=== PATIENT | female | born 1990 | race Caucasian/White ===

== ENCOUNTER 2016-08-27 14:04 | Inpatient (IN) | payer BC, MEDICAID ==
[2016-08-27] MEDS ORDERED: Misoprostol 200 MCG Tab PO PRN (16:27)
[2016-08-27] MEDS ORDERED: Terbutaline 1 MG/ML SDV SUBCUT PRN (16:27)
[2016-08-27] MEDS ORDERED: Carboprost Tromethamine 250 MCG/1 ML Amp IM PRN (16:27)
[2016-08-27] MEDS ORDERED: Misoprostol 25 MCG (1/4 of 100 MCG) Tab PO PRN (16:27)
[2016-08-27] MEDS ORDERED: Sodium Chloride 0.9% 10 ML Syringe FLUSH PRN (16:27)
[2016-08-27] MEDS ORDERED: Misoprostol 25 MCG (1/4 of 100 MCG) Tab VAG PRN (16:27)
[2016-08-27] MEDS ORDERED: Nalbuphine 10 MG/1 ML Vial IVPUSH PRN (16:27)
[2016-08-27] MEDS ORDERED: Methylergonovine 0.2 MG/1 ML Amp IM PRN (16:27)
[2016-08-27] MEDS ORDERED: Lidocaine 1% 50 ML MDV INJECT PRN (16:27)
[2016-08-27] MEDS ORDERED: Water For Irrigation,Sterile 1,000 ML Container IRR PRN (16:27)
[2016-08-27] MEDS ORDERED: Sodium Chloride 0.9% 2.5 ML Syringe FLUSH PRN (16:27)
[2016-08-27] MEDS ORDERED: Misoprostol 25 MCG (1/4 of 100 MCG) Tab PO SCH (16:30)
[2016-08-27] MEDS ORDERED: Oxytocin/Lactated Ringers 30 UNIT/500 ML BAG IV SCH (16:30)
[2016-08-27] MEDS ORDERED: Misoprostol 25 MCG (1/4 of 100 MCG) Tab VAG SCH (16:30)
--- NOTE | 2016-08-27 17:00 | PCM.LDHP ---
L&D History of Present Illness - General Date of Service: 08/27/16 Admit Problem/Dx: Patient Status Order with Admit Dx/Problem 08/27/16 14:15 Patient Status [ADT] Routine 08/27/16 16:28 Patient Status [ADT] Routine Admission Diagnosis/Problem Admission Diagnosis/Problem Source of Information: Patient History Limitations: Reports: No limitations - History of Present Illness Improves with: Reports: None Worsens with: Reports: None Associated Symptoms: Reports: N - Related Data Allergies/Adverse Reactions: Allergies Allergy/AdvReac Type Severity Reaction Status Date / Time No Known Allergies Allergy Verified 08/27/16 15:49 Home Medications: Home Meds Gabapentin [Neurontin] 100 mg PO ACLUN 08/29/14 [History] Gabapentin [Neurontin] 300 mg PO BID 08/29/14 [History] Social & Family History - Tobacco Use Smoking Status *Q: Never Smoker - Alcohol Use Days Per Week of Alcohol Use: 0 - Recreational Drug Use Recreational Drug Use: Yes Drug Use in Last 12 Months: Yes Recreational Drug Type: Reports: Marijuana/Hashish Recreational Drug Use Frequency: Monthly H&P Review of Systems - Review of Systems: Review Of Systems: See Below General: Reports: no symptoms HEENT: Reports: no symptoms Pulmonary: Reports: No Symptoms Cardiovascular: Reports: no symptoms Gastrointestinal: Reports: No symptoms Genitourinary: Reports: no symptoms Musculoskeletal: Reports: no symptoms Skin: Reports: no symptoms Psychiatric: Reports: no symptoms Neurological: Reports: No Symptoms Hematologic/Lymphatic: Reports: no symptoms Immunologic: Reports: no symptoms L&D Exam - Exam Exam: See Below - Vital Signs Weight: 117.027 kg - OB Specific Fundal Height in cm: 39 Contraction Intensity: Mild movement: active heart tones: present Presentation: Vertex - Patient Data Lab Results last 24 hrs: Laboratory Results - last 24 hr 08/27/16 08/27/16 Range/Units 14:00 14:00 Urine Color YELLOW Urine Appearance SLT CLOUDY Urine pH 8.0 (5.0-8.0) Ur Specific [place] 1.015 (1.001-1.035) Urine Protein NEGATIVE (NEGATIVE) mg/dL Urine Glucose (UA) NEGATIVE (NEGATIVE) mg/dL Urine Ketones NEGATIVE (NEGATIVE) mg/dL Urine Occult Blood NEGATIVE (NEGATIVE) Urine Nitrite NEGATIVE (NEGATIVE) Urine Bilirubin NEGATIVE (NEGATIVE) Urine Urobilinogen 0.2 (<2.0) EU/dL Ur Leukocyte Esterase SMALL (NEGATIVE) Urine Opiates Screen NEGATIVE (NEGATIVE) Ur Oxycodone Screen NEGATIVE (NEGATIVE) Urine Methadone Screen NEGATIVE (NEGATIVE) Ur Barbiturates Screen NEGATIVE (NEGATIVE) Ur Phencyclidine Scrn NEGATIVE (NEGATIVE) Ur Amphetamine Screen NEGATIVE (NEGATIVE) U Methamphetamines Scrn NEGATIVE (NEGATIVE) U Benzodiazepines Scrn NEGATIVE (NEGATIVE) U Cocaine Metab Screen NEGATIVE (NEGATIVE) U Marijuana (THC) Screen NEGATIVE (NEGATIVE) Problem List Initiated/Reviewed/Updated: Yes Orders Last 24hrs: Active Orders 24 hr Category Date Time Status Patient Status [ADT] Routine ADT 08/27/16 16:28 Active Bedrest Bathroom Privileges [RC] ASDIRECTED Care 08/27/16 16:28 Active Communication Order [RC] ASDIRECTED Care 08/27/16 16:28 Active Communication Order [RC] ASDIRECTED Care 08/27/16 16:28 Active Communication Order [RC] ASDIRECTED Care 08/27/16 16:28 Active Heart Tones [RC] CONTINUOUS Care 08/27/16 16:28 Active Non Stress Test [RC] PER UNIT ROUTINE Care 08/27/16 14:15 Active Non Stress Test [RC] PER UNIT ROUTINE Care 08/27/16 16:28 Active May Shower [RC] ASDIRECTED Care 08/27/16 16:28 Active Notify Provider [RC] PRN Care 08/27/16 16:28 Active Notify Provider [RC] PRN Care 08/27/16 16:28 Active Notify Provider [RC] PRN Care 08/27/16 16:28 Active Notify Provider [RC] STAT Care 08/27/16 16:28 Active Oxygen Therapy [RC] ASDIRECTED Care 08/27/16 16:28 Active Up ad Wen [RC] ASDIRECTED Care 08/27/16 14:15 Active Up ad Wen [RC] ASDIRECTED Care 08/27/16 16:28 Active Vaginal Exam [RC] Click To Edit Care 08/27/16 14:15 Active Vaginal Exam [RC] PRN Care 08/27/16 16:28 Active Vaginal Exam [RC] PRN Care 08/27/16 16:28 Active Vital Signs [RC] PER UNIT ROUTINE Care 08/27/16 14:15 Active Vital Signs [RC] PER UNIT ROUTINE Care 08/27/16 16:28 Active Vital Signs [RC] PER UNIT ROUTINE Care 08/27/16 16:28 Active Clear Liquid Diet [DIET] Diet 08/27/16 Dinner Active CBC W/O DIFF,HEMOGRAM [HEME] Routine Lab 08/27/16 16:28 Ordered TYPE AND SCREEN [BBK] Routine Lab 08/27/16 16:28 Ordered Butorphanol [Stadol] Med 08/27/16 16:27 Active 1 mg IVPUSH Q1H PRN Carboprost Tromethamine [Hemabate DS] Med 08/27/16 16:27 Active 250 mcg IM ASDIRECTED PRN Lactated Ringers [Ringers, Lactated] 1,000 ml Med 08/27/16 16:30 Active IV ASDIRECTED Lidocaine 1% [Xylocaine 1%] Med 08/27/16 16:27 Active 50 ml INJECT .ONCE PRN Methylergonovine [Methergine] Med 08/27/16 16:27 Active 0.2 mg IM ASDIRECTED PRN Misoprostol [Cytotec] Med 08/27/16 16:27 Active 200 mcg PO .ONCE PRN Misoprostol [Cytotec] Med 08/27/16 16:30 Active 25 mcg PO .ONCE Misoprostol [Cytotec] Med 08/27/16 16:27 Active 25 mcg PO Q4H PRN Misoprostol [Cytotec] Med 08/27/16 16:30 Active 25 mcg VAG .ONCE Misoprostol [Cytotec] Med 08/27/16 16:27 Active 25 mcg VAG Q4H PRN Nalbuphine [Nubain] Med 08/27/16 16:27 Active 10 mg IVPUSH Q1H PRN Oxytocin/Lactated Ringers [Pitocin in LR 30 Units/500 Med 08/27/16 16:30 Active ML] 30 unit in 500 ml IV TITRATE Sodium Chloride 0.9% [Saline Flush] Med 08/27/16 16:27 Active 10 ml FLUSH ASDIRECTED PRN Sodium Chloride 0.9% [Saline Flush] Med 08/27/16 16:27 Active 2.5 ml FLUSH ASDIRECTED PRN Terbutaline [Brethine] Med 08/27/16 16:27 Active 0.25 mg SUBCUT ASDIRECTED PRN Water For Irrigation,Sterile [Sterile Water for Med 08/27/16 16:27 Active Irrigation] 1,000 ml IRR ASDIRECTED PRN Scalp Electrode [WOMSER] Per Unit Routine Oth 08/27/16 16:28 Ordered Medication Administration Instruction [OM.PC] Q3H Oth 08/27/16 16:30 Ordered Peripheral IV Insertion Adult [OM.PC] Routine Oth 08/27/16 16:28 Ordered Resuscitation Status Routine Resus Stat 08/27/16 14:14 Ordered Medication Orders Butorphanol Tartrate (Stadol) 1 mg IVPUSH Q1H PRN PRN Reason: Pain Carboprost Tromethamine (Hemabate Ds) 250 mcg IM ASDIRECTED PRN PRN Reason: Post Hemorrhage Lactated Ringer's (Ringers, Lactated) 1,000 mls @ 150 mls/hr IV ASDIRECTED MARIYA Oxytocin/Lactated Ringer's (Pitocin In Lr 30 Units/500 Ml) 30 unit in 500 mls @ 2 mls/hr IV TITRATE MARIYA; 2 MUNITS/MIN PRN Reason: Protocol Stop: 08/28/16 16:29 Lidocaine HCl (Xylocaine 1%) 50 ml INJECT .ONCE PRN PRN Reason: Laceration repair Methylergonovine Maleate (Methergine) 0.2 mg IM ASDIRECTED PRN PRN Reason: Post Hemorrhage Misoprostol (Cytotec) 25 mcg VAG Q4H PRN PRN Reason: Cervical Ripening Stop: 08/28/16 20:28 Misoprostol (Cytotec) 200 mcg PO .ONCE PRN PRN Reason: Post Hemorrhage Misoprostol (Cytotec) 25 mcg PO Q4H PRN PRN Reason: Cervical Ripening Stop: 08/28/16 20:28 Misoprostol (Cytotec) 25 mcg VAG .ONCE MARIYA Misoprostol (Cytotec) 25 mcg PO .ONCE MARIYA Nalbuphine HCl (Nubain) 10 mg IVPUSH Q1H PRN PRN Reason: Pain (severe 7-10) Stop: 08/27/16 18:28 Sodium Chloride (Saline Flush) 10 ml FLUSH ASDIRECTED PRN PRN Reason: Keep Vein Open Sodium Chloride (Saline Flush) 2.5 ml FLUSH ASDIRECTED PRN PRN Reason: Keep Vein Open Sterile Water (Sterile Water For Irrigation) 1,000 ml IRR ASDIRECTED PRN PRN Reason: delivery Terbutaline Sulfate (Brethine) 0.25 mg SUBCUT ASDIRECTED PRN PRN Reason: Tacysystole Assessment/Plan Comment:: This patient is presented to labor and delivery with mild contraction have care done by fire protection fabricator and at [facility] she is currently postdate with the end EDC of August 18, 2016 hours documented by an early ultrasound and reviewing her record from her current health care provider. Hair health care provider is out of town until September 02 there is no other pulp maker or and fire protection fabricator in the area she is para 3o23 and her cervical exam is a 2 cm 50% vertex- 3. Because the patient is post date and there is no availability of provider in her area I counseled the patient and her and they both consented for induction admitting her for side effects and Pitocin induction risk and complication of the induction is discussed with the patient in detail
[2016-08-27] MEDS: Lactated Ringers 1,000 ML IV SCH (17:10)
[2016-08-28] MEDS: Butorphanol 1 MG/ML SDV IVPUSH PRN ×2 (01:30→04:04)
[2016-08-28] MEDS: Lactated Ringers 1,000 ML IV SCH ×3 (02:47→04:29)
[2016-08-28] MEDS ORDERED: Ropivacaine 0.2% 2 MG/ML 20 ML SDV ONE (02:57)
[2016-08-28] MEDS ORDERED: Ropivacaine HCl/PF 100 ML ONE (02:58)
[2016-08-28] MEDS ORDERED: fentaNYL 100 MCG/2 ML SDV ONE (02:59)
--- NOTE | 2016-08-28 04:04 | PCM.PREANE ---
Preanesthetic Assessment - Anesthesia/Transfusion/Family Hx Anesthesia History: Prior Anesthesia Without Reaction Family History of Anesthesia Reaction: No Transfusion History: No Prior Transfusion(s) - Review of Systems General: No Symptoms Pulmonary: No Symptoms Cardiovascular: No Symptoms Gastrointestinal: No symptoms Neurological: No Symptoms Other: Reports: None - Physical Assessment Height: 1.7 m Weight: 117.027 kg ASA Class: 2 Mental Status: Alert & Oriented x3 Airway Class: Mallampati = 2 Dentition: Reports: Normal Dentition ROM/Head Extension: Full - Lab Values: Laboratory Last Values WBC 15.92 K/uL (4.0-11.0) H 08/27/16 16:58 RBC 3.88 M/uL (4.30-5.90) L 08/27/16 16:58 Hgb 12.0 g/dL (12.0-16.0) 08/27/16 16:58 Hct 35.5 % (36.0-46.0) L 08/27/16 16:58 MCV 91.5 fL (80.0-98.0) 08/27/16 16:58 MCH 30.9 pg (27.0-32.0) 08/27/16 16:58 MCHC 33.8 g/dL (31.0-37.0) 08/27/16 16:58 RDW Std Deviation 50.9 fl (28.0-62.0) 08/27/16 16:58 RDW Coeff of Laxmi 16 % (11.0-15.0) H 08/27/16 16:58 Plt Count 286 K/uL (150-400) 08/27/16 16:58 MPV 11.30 fL (7.40-12.00) 08/27/16 16:58 Nucleated RBC % 0.0 /100WBC 08/27/16 16:58 Nucleated RBCs # 0 K/uL 08/27/16 16:58 Urine Color YELLOW 08/27/16 14:00 Urine Appearance SLT CLOUDY 08/27/16 14:00 Urine pH 8.0 (5.0-8.0) 08/27/16 14:00 Ur Specific [place] 1.015 (1.001-1.035) 08/27/16 14:00 Urine Protein NEGATIVE mg/dL (NEGATIVE) 08/27/16 14:00 Urine Glucose (UA) NEGATIVE mg/dL (NEGATIVE) 08/27/16 14:00 Urine Ketones NEGATIVE mg/dL (NEGATIVE) 08/27/16 14:00 Urine Occult Blood NEGATIVE (NEGATIVE) 08/27/16 14:00 Urine Nitrite NEGATIVE (NEGATIVE) 08/27/16 14:00 Urine Bilirubin NEGATIVE (NEGATIVE) 08/27/16 14:00 Urine Urobilinogen 0.2 EU/dL (<2.0) 08/27/16 14:00 Ur Leukocyte Esterase SMALL (NEGATIVE) 08/27/16 14:00 Urine Opiates Screen NEGATIVE (NEGATIVE) 08/27/16 14:00 Ur Oxycodone Screen NEGATIVE (NEGATIVE) 08/27/16 14:00 Urine Methadone Screen NEGATIVE (NEGATIVE) 08/27/16 14:00 Ur Barbiturates Screen NEGATIVE (NEGATIVE) 08/27/16 14:00 Ur Phencyclidine Scrn NEGATIVE (NEGATIVE) 08/27/16 14:00 Ur Amphetamine Screen NEGATIVE (NEGATIVE) 08/27/16 14:00 U Methamphetamines Scrn NEGATIVE (NEGATIVE) 08/27/16 14:00 U Benzodiazepines Scrn NEGATIVE (NEGATIVE) 08/27/16 14:00 U Cocaine Metab Screen NEGATIVE (NEGATIVE) 08/27/16 14:00 U Marijuana (THC) Screen NEGATIVE (NEGATIVE) 08/27/16 14:00 Blood Type O POSITIVE 08/27/16 16:58 Antibody Screen NEGATIVE 08/27/16 16:58 - Allergies Allergies/Adverse Reactions: Allergies Allergy/AdvReac Type Severity Reaction Status Date / Time No Known Allergies Allergy Verified 08/27/16 15:49 - Acknowledgements Anesthesia Type Planned: Epidural Pt an Appropriate Candidate for the Planned Anesthesia: Yes Alternatives and Risks of Anesthesia Discussed w Pt/Guardian: Yes Pt/Guardian Understands and Agrees with Anesthesia Plan: Yes Additional Comments: Pt agress to risks and benefits (along with significant other in room) PreAnesthesia Questionnaire - Past Health History Medical/Surgical History: Denies Medical/Surgical History (Patient denies taking any medication or any medical problems) Gastrointestinal History: Reports: Irritable bowel syndrome UG DESIGNER History: Reports: , Spontaneous , Therapeutic Musculoskeletal History: Reports: Fibromyalgia, Other (see below) Other Musculoskeletal History: carpal tunnel syndrome Psychiatric History: Reports: Depression Endocrine/Metabolic History: Reports: None (Denies any personal or family hx of bleeding or clotting problems), Obesity/BMI 30+ - Infectious Disease History Infectious Disease History: Reports: Herpes - Past Surgical History HEENT Surgical History: Reports: Tonsillectomy Female Surgical History: Reports: Cystectomy Endocrine Surgical History: Reports: None Musculoskeletal Surgical History: Reports: None - SUBSTANCE USE Smoking Status *Q: Never Smoker Days Per Week of Alcohol Use: 0 Recreational Drug Use History: Yes Recreational Drug Type: Reports: Marijuana/Hashish - HOME MEDS Home Medications: Home Meds Gabapentin [Neurontin] 100 mg PO ACLUN 08/29/14 [History] Gabapentin [Neurontin] 300 mg PO BID 08/29/14 [History] - CURRENT (IN HOUSE) MEDS Current Meds: Current Medications Butorphanol Tartrate (Stadol) 1 mg IVPUSH Q1H PRN PRN Reason: Pain Last Admin: 08/28/16 01:30 Dose: 1 mg Carboprost Tromethamine (Hemabate Ds) 250 mcg IM ASDIRECTED PRN PRN Reason: Post Hemorrhage Lactated Ringer's (Ringers, Lactated) 1,000 mls @ 150 mls/hr IV ASDIRECTED MARIYA Last Admin: 08/28/16 03:20 Dose: 999 mls/hr Oxytocin/Lactated Ringer's (Pitocin In Lr 30 Units/500 Ml) 30 unit in 500 mls @ 2 mls/hr IV TITRATE MARIYA; 2 MUNITS/MIN PRN Reason: Protocol Stop: 08/28/16 16:29 Lidocaine HCl (Xylocaine 1%) 50 ml INJECT .ONCE PRN PRN Reason: Laceration repair Last Admin: 08/28/16 03:34 Dose: 50 ml Methylergonovine Maleate (Methergine) 0.2 mg IM ASDIRECTED PRN PRN Reason: Post Hemorrhage Misoprostol (Cytotec) 25 mcg VAG Q4H PRN PRN Reason: Cervical Ripening Stop: 08/28/16 20:28 Last Admin: 08/27/16 21:30 Dose: 25 mcg Misoprostol (Cytotec) 200 mcg PO .ONCE PRN PRN Reason: Post Hemorrhage Misoprostol (Cytotec) 25 mcg PO Q4H PRN PRN Reason: Cervical Ripening Stop: 08/28/16 20:28 Last Admin: 08/27/16 21:30 Dose: 25 mcg Misoprostol (Cytotec) 25 mcg VAG .ONCE MARIYA Last Admin: 08/27/16 17:25 Dose: 25 mcg Misoprostol (Cytotec) 25 mcg PO .ONCE MARIYA Last Admin: 08/27/16 17:25 Dose: 25 mcg Sodium Chloride (Saline Flush) 10 ml FLUSH ASDIRECTED PRN PRN Reason: Keep Vein Open Sodium Chloride (Saline Flush) 2.5 ml FLUSH ASDIRECTED PRN PRN Reason: Keep Vein Open Sterile Water (Sterile Water For Irrigation) 1,000 ml IRR ASDIRECTED PRN PRN Reason: delivery Terbutaline Sulfate (Brethine) 0.25 mg SUBCUT ASDIRECTED PRN PRN Reason: Tacysystole Discontinued Medications Fentanyl (Sublimaze) Confirm Administered Dose 200 mcg .ROUTE .STK-MED ONE Stop: 08/28/16 03:00 Ropivacaine (Naropin 0.2%) Confirm Administered Dose 100 mls @ as directed .ROUTE .STK-MED ONE Stop: 08/28/16 02:59 Nalbuphine HCl (Nubain) 10 mg IVPUSH Q1H PRN PRN Reason: Pain (severe 7-10) Stop: 08/27/16 18:28 Ropivacaine (Naropin 0.2%) Confirm Administered Dose 20 ml .ROUTE .STK-MED ONE Stop: 08/28/16 02:58
--- NOTE | 2016-08-28 04:55 | PCM.SN ---
- Free Text/Narrative Note: Called to assist in epidural placement. RECORDS SECTION SUPERVISOR had failed attempts at placement in this laboring patient. On my arrival, patient was in LLD position. I identified myself and proceeded to set up [place] kit. After sterile prep, local anesthetic 5ml lidocaine (1%) was given shallow and deep at L45 level. Patient was trying ot be cooperative in attempting a curl position but responded to just palpation (anticipation of pain). Difficult to set 17g Tuohy needle into the ligament midline but accomplished on second attempt. 2ml saline ( preservative free) injected and catheter then placed. Needle withdrawn and injection of 4ml done via the catheter containing 100mcg fentanyl in saline followed. Sterile transparent dressing applied and supine position assumed. Incremental injection of 20ml 0.2% ropivacaine followed at the bedside over 10 minutes. Continuous infusion then connected by DON, who then assumed further care. Patient's vitals remained stable and analgesia was accomplished before I left the bedside. Time involved [id number] 28 August 2016.
--- NOTE | 2016-08-28 07:07 | PCM.SN ---
- Free Text/Narrative Note: Called by OB stating that the patient is feeling everything in her legs and is very uncomfortable. Asked them to page Dr. Vann since the epidural was difficult to place and I would be in. Upon arrival 15 minutes later, patient and nurse in the room state that patient got better after pushing bolus button. Patient states that she can still feel her legs and feels pressure in her vagina and is scared that "the baby is going to come out and she is going to tear because of his position." Patient is not feeling contractions. Reassured patient and she voices understanding that she is going to feel pressure and that her legs will have feeling. She states she has never had any sensation in her legs with her other epidurals. I visited with Dr. Vann and increased the bolus to 7 ml q 15 minutes with a maximum of 21 ml per hour. Patient states she is very anxious. Patient is now 7 cm. Reassured again.
--- NOTE | 2016-08-28 08:36 | PCM.PNLD ---
Labor Progress Note - VS & Meds Active Medications: Current Medications Butorphanol Tartrate (Stadol) 1 mg IVPUSH Q1H PRN PRN Reason: Pain Last Admin: 08/28/16 04:04 Dose: 1 mg Carboprost Tromethamine (Hemabate Ds) 250 mcg IM ASDIRECTED PRN PRN Reason: Post Hemorrhage Lactated Ringer's (Ringers, Lactated) 1,000 mls @ 150 mls/hr IV ASDIRECTED MARIYA Last Admin: 08/28/16 04:29 Dose: 150 mls/hr Oxytocin/Lactated Ringer's (Pitocin In Lr 30 Units/500 Ml) 30 unit in 500 mls @ 2 mls/hr IV TITRATE MARIYA; 2 MUNITS/MIN PRN Reason: Protocol Stop: 08/28/16 16:29 Last Titration: 08/28/16 08:30 Dose: 8 munits/min, 8 mls/hr Lidocaine HCl (Xylocaine 1%) 50 ml INJECT .ONCE PRN PRN Reason: Laceration repair Last Admin: 08/28/16 03:34 Dose: 50 ml Methylergonovine Maleate (Methergine) 0.2 mg IM ASDIRECTED PRN PRN Reason: Post Hemorrhage Misoprostol (Cytotec) 25 mcg VAG Q4H PRN PRN Reason: Cervical Ripening Stop: 08/28/16 20:28 Last Admin: 08/27/16 21:30 Dose: 25 mcg Misoprostol (Cytotec) 200 mcg PO .ONCE PRN PRN Reason: Post Hemorrhage Misoprostol (Cytotec) 25 mcg PO Q4H PRN PRN Reason: Cervical Ripening Stop: 08/28/16 20:28 Last Admin: 08/27/16 21:30 Dose: 25 mcg Misoprostol (Cytotec) 25 mcg VAG .ONCE MARIYA Last Admin: 08/27/16 17:25 Dose: 25 mcg Misoprostol (Cytotec) 25 mcg PO .ONCE MARIYA Last Admin: 08/27/16 17:25 Dose: 25 mcg Sodium Chloride (Saline Flush) 10 ml FLUSH ASDIRECTED PRN PRN Reason: Keep Vein Open Sodium Chloride (Saline Flush) 2.5 ml FLUSH ASDIRECTED PRN PRN Reason: Keep Vein Open Sterile Water (Sterile Water For Irrigation) 1,000 ml IRR ASDIRECTED PRN PRN Reason: delivery Terbutaline Sulfate (Brethine) 0.25 mg SUBCUT ASDIRECTED PRN PRN Reason: Tacysystole Discontinued Medications Fentanyl (Sublimaze) Confirm Administered Dose 200 mcg .ROUTE .STK-MED ONE Stop: 08/28/16 03:00 Last Admin: 08/28/16 07:39 Dose: Not Given Ropivacaine (Naropin 0.2%) Confirm Administered Dose 100 mls @ as directed .ROUTE .STK-MED ONE Stop: 08/28/16 02:59 Last Admin: 08/28/16 07:39 Dose: Not Given Nalbuphine HCl (Nubain) 10 mg IVPUSH Q1H PRN PRN Reason: Pain (severe 7-10) Stop: 08/27/16 18:28 Ropivacaine (Naropin 0.2%) Confirm Administered Dose 20 ml .ROUTE .STK-MED ONE Stop: 08/28/16 02:58 Last Admin: 08/28/16 07:39 Dose: Not Given - Uterine Contractions Uterine Monitoring Mode: External [place] Contraction Intensity: Moderate - Monitoring Monitor Mode: External Ultrasound Heart Rate (FHR) Per Doppler: 136 Heart Rate (FHR) Variability: Moderate (6-25 bmp) Accelerations: Present, 15x15 Decelerations: None - Vaginal Exam Dilation (cm): 8 Effacement (Percent): 90 Station: 0 Vaginal Exam Comment: Artificial rupture of the membrane done today with clear fluid noted. Anticipating normal spontaneous vaginal delivery soon
[2016-08-28] MEDS ORDERED: Benzocaine/Menthol 20%-0.5% Spray 78 GM Cannister TOP PRN (09:37)
[2016-08-28] MEDS ORDERED: Docusate Sodium 100 MG Cap PO PRN (09:37)
[2016-08-28] MEDS ORDERED: Acetaminophen 500 MG Tab PO PRN (09:37)
[2016-08-28] MEDS ORDERED: Ibuprofen 400 MG Tab PO PRN (09:37)
[2016-08-28] MEDS ORDERED: Witch Hazel Medicated Pads 40/Jar TOP PRN (09:37)
[2016-08-28] MEDS ORDERED: Bisacodyl 10 MG Supp RECTAL PRN (09:37)
[2016-08-28] MEDS ORDERED: Lanolin 100% Cream 7 GM Tube TOP PRN (09:37)
[2016-08-28] MEDS: Ibuprofen 800 MG Tab PO PRN ×2 (10:27→18:53)
[2016-08-28] MEDS: Acetaminophen 500 MG Tab PO PRN ×2 (15:51→20:30)
--- NOTE | 2016-08-28 16:58 | OR ---
SURGEON: Leon Small MD DATE OF PROCEDURE: DELIVERY NOTE: Ms. Guidry is a 26-year-old patient. She is para 3-2-3. She is followed in the clinic at [place]. However, her healthcare provider and visual aid expert are out of town. At this time, she presented to our Labor and Delivery in early labor. I reviewed her record. Her GBS status is negative. The patient according to an early ultrasound, she is 41+ weeks and so we admitted the patient for labor augmentation and we used Cytotec and Pitocin and she responded to it very well. She had epidural anesthesia for labor analgesia. The patient have an artificial rupture of the membrane by me had clear fluid at 7 to 8 cm and then she was able to accomplish a normal spontaneous vaginal delivery of male fetus. score reported to be 8 and 9. The weight is not available. The heart rate was category 1 through the entire process of labor. Estimated blood loss is 300 to 350 mL. There was no laceration. There is no need for the episiotomy and there was no complication in this . OSEI / ALPESH /[id number]
--- NOTE | 2016-08-28 20:25 | PCM48HPAN ---
Post Anesthesia Note - EVALUATION WITHIN 48HRS OF ANESTHETIC Vital Signs in Normal Range: Yes Patient Participated in Evaluation: Yes Respiratory Function Stable: Yes Airway Patent: Yes Cardiovascular Function Stable: Yes Hydration Status Stable: Yes Pain Control Satisfactory: Yes Nausea and Vomiting Control Satisfactory: Yes Mental Status Recovered: Yes - COMMENTS/OBSERVATIONS Free Text/Narrative:: Pt reports tenderness to back from insertion of epidural catheter. No other problems reported or observed.
[2016-08-28] MEDS: oxyCODONE 5 MG Tab PO PRN (23:04)
[2016-08-29] MEDS: oxyCODONE 5 MG Tab PO PRN ×3 (04:13→12:47)
[2016-08-29] MEDS: Ibuprofen 800 MG Tab PO PRN ×2 (04:14→12:48)
[2016-08-29] MEDS: Acetaminophen 500 MG Tab PO PRN (08:14)
--- NOTE | 2016-08-29 08:36 | PCM.PNPP ---
- General Info Date of Service: 08/29/16 Functional Status: Reports: pain controlled - Review of Systems General: Reports: No Symptoms HEENT: Reports: no symptoms Pulmonary: Reports: no symptoms Cardiovascular: Reports: No Symptoms Gastrointestinal: Reports: No symptoms Genitourinary: Reports: no symptoms Musculoskeletal: Reports: no symptoms Skin: Reports: no symptoms Neurological: Reports: No Symptoms Psychiatric: Reports: no symptoms - General Info Date of Service: 08/29/16 - Patient Data Vital Signs - most recent: Last Vital Signs Temp 36.9 C 08/29/16 04:18 Pulse 62 08/29/16 04:18 Resp 16 08/29/16 04:18 BP 117/55 L 08/29/16 04:18 Pulse Ox 97 08/29/16 04:18 Weight - most recent: 117.027 kg Lab Results - last 24 hrs: Laboratory Results - last 24 hr 08/29/16 Range/Units 04:45 Hgb 9.3 L (12.0-16.0) g/dL Hct 27.9 L (36.0-46.0) % Med Orders - Current: Current Medications Acetaminophen (Tylenol Extra Strength) 500 mg PO Q4H PRN PRN Reason: Pain Acetaminophen (Tylenol Extra Strength) 1,000 mg PO Q4H PRN PRN Reason: Pain Last Admin: 08/29/16 08:14 Dose: 1,000 mg Benzocaine/Menthol (Dermoplast Pain Relief 20%-0.5% [place]) 78 gm TOP ASDIRECTED PRN PRN Reason: Perineal Comfort Measure Last Admin: 08/28/16 10:26 Dose: 1 can Bisacodyl (Dulcolax) 10 mg RECTAL .ONCE PRN PRN Reason: Constipation Butorphanol Tartrate (Stadol) 1 mg IVPUSH Q1H PRN PRN Reason: Pain Last Admin: 08/28/16 04:04 Dose: 1 mg Carboprost Tromethamine (Hemabate Ds) 250 mcg IM ASDIRECTED PRN PRN Reason: Post Hemorrhage Docusate Sodium (Colace) 100 mg PO BID PRN PRN Reason: Constipation Emollient Ointment (Lansinoh Hpa) 0 gm TOP ASDIRECTED PRN PRN Reason: Sore Nipples Last Admin: 08/28/16 10:27 Dose: 1 tube Lactated Ringer's (Ringers, Lactated) 1,000 mls @ 150 mls/hr IV ASDIRECTED MARIYA Last Admin: 08/28/16 04:29 Dose: 150 mls/hr Ibuprofen (Motrin) 400 mg PO Q4H PRN PRN Reason: Pain Ibuprofen (Motrin) 800 mg PO Q6H PRN PRN Reason: Pain Last Admin: 08/29/16 04:14 Dose: 800 mg Lidocaine HCl (Xylocaine 1%) 50 ml INJECT .ONCE PRN PRN Reason: Laceration repair Last Admin: 08/28/16 03:34 Dose: 50 ml Methylergonovine Maleate (Methergine) 0.2 mg IM ASDIRECTED PRN PRN Reason: Post Hemorrhage Misoprostol (Cytotec) 200 mcg PO .ONCE PRN PRN Reason: Post Hemorrhage Misoprostol (Cytotec) 25 mcg VAG .ONCE MARIYA Last Admin: 08/27/16 17:25 Dose: 25 mcg Misoprostol (Cytotec) 25 mcg PO .ONCE MARIYA Last Admin: 08/27/16 17:25 Dose: 25 mcg Oxycodone HCl (Oxycodone) 5 mg PO Q2H PRN PRN Reason: Pain Last Admin: 08/29/16 08:13 Dose: 5 mg Sodium Chloride (Saline Flush) 10 ml FLUSH ASDIRECTED PRN PRN Reason: Keep Vein Open Sodium Chloride (Saline Flush) 2.5 ml FLUSH ASDIRECTED PRN PRN Reason: Keep Vein Open Sterile Water (Sterile Water For Irrigation) 1,000 ml IRR ASDIRECTED PRN PRN Reason: delivery Terbutaline Sulfate (Brethine) 0.25 mg SUBCUT ASDIRECTED PRN PRN Reason: Tacysystole Witch Ara (Tucks) 1 pad TOP ASDIRECTED PRN PRN Reason: comfort care Last Admin: 08/28/16 10:27 Dose: 1 tub Discontinued Medications Fentanyl (Sublimaze) Confirm Administered Dose 200 mcg .ROUTE .STK-MED ONE Stop: 08/28/16 03:00 Last Admin: 08/28/16 07:39 Dose: Not Given Oxytocin/Lactated Ringer's (Pitocin In Lr 30 Units/500 Ml) 30 unit in 500 mls @ 2 mls/hr IV TITRATE MARIYA; 2 MUNITS/MIN PRN Reason: Protocol Stop: 08/28/16 16:29 Last Titration: 08/28/16 09:28 Dose: 999 munits/min, 999 mls/hr Ropivacaine (Naropin 0.2%) Confirm Administered Dose 100 mls @ as directed .ROUTE .STK-MED ONE Stop: 08/28/16 02:59 Last Admin: 08/28/16 07:39 Dose: Not Given Misoprostol (Cytotec) 25 mcg VAG Q4H PRN PRN Reason: Cervical Ripening Stop: 08/28/16 20:28 Last Admin: 08/27/16 21:30 Dose: 25 mcg Misoprostol (Cytotec) 25 mcg PO Q4H PRN PRN Reason: Cervical Ripening Stop: 08/28/16 20:28 Last Admin: 08/27/16 21:30 Dose: 25 mcg Nalbuphine HCl (Nubain) 10 mg IVPUSH Q1H PRN PRN Reason: Pain (severe 7-10) Stop: 08/27/16 18:28 Ropivacaine (Naropin 0.2%) Confirm Administered Dose 20 ml .ROUTE .STK-MED ONE Stop: 08/28/16 02:58 Last Admin: 08/28/16 07:39 Dose: Not Given - Interaction Infant Disposition, : in Room with Family Infant Interaction: Holding Infant Feeding: Attempted ; Nursed Fair/Poor Support Person: Significant Other - Recovery Exam Fundal Tone: Firm Fundal Level: At Umbilicus Fundal Placement: Midline Lochia Amount: Small Lochia Color: Rubra/Red Perineum Description: Intact, Minimal Bruising/Swelling Episiotomy/Laceration: None Bladder Status: Voiding Urinary Elimination: Voided - Exam General: alert, oriented HEENT: Pupils equal Neck: supple Lungs: Clear to auscultation, Normal respiratory effort Cardiovascular: Regular Rate, Regular Rhythm Abdomen: bowel sounds present, soft, no tenderness, no distension Extremities: no edema Skin: warm, dry, intact Wound/Incisions: healing well Neurological: no new focal deficit Psy/Mental Status: alert, normal affect, normal mood - Problem List Review Problem List Initiated/Reviewed/Updated: Yes - My Orders Last 24 Hours: My Active Orders 08/28/16 09:37 Acetaminophen [Tylenol Extra Strength] 1,000 mg PO Q4H PRN Acetaminophen [Tylenol Extra Strength] 500 mg PO Q4H PRN Benzocaine/Menthol [Dermoplast Pain Relief 20%-0.5% [place]] 78 gm TOP ASDIRECTED PRN Bisacodyl [Dulcolax] 10 mg RECTAL .ONCE PRN Docusate Sodium [Colace] 100 mg PO BID PRN Ibuprofen [Motrin] 400 mg PO Q4H PRN Ibuprofen [Motrin] 800 mg PO Q6H PRN Lanolin [Lansinoh HPA] See Dose Instructions TOP ASDIRECTED PRN Leilani Bullock [Tucks] 1 pad TOP ASDIRECTED PRN oxyCODONE 5 mg PO Q2H PRN 08/28/16 09:41 Patient Status [ADT] Routine May Shower [RC] ASDIRECTED Assess Lochia [WOMSER] Per Unit Routine Assess Uterine Involution [WOMSER] Per Unit Routine Peripheral IV Discontinue [OM.PC] Routine 08/28/16 Lunch Regular Diet [DIET] - Plan Plan:: This patient is presented to labor and delivery with mild contraction have care done by licensed midwife and at [facility] she is currently postdate with the end EDC of August 18, 2016 hours documented by an early ultrasound and reviewing her record from her current health care provider. Hair health care provider is out of town until September 02 there is no other authorization coordinator or and licensed midwife in the area she is para [id number] and her cervical exam is a 2 cm 50% vertex- 3. Because the patient is post date and there is no availability of provider in her area I counseled the patient and her and they both consented for induction admitting her for side effects and Pitocin induction risk and complication of the induction is discussed with the patient in detail
--- NOTE | 2016-08-29 08:37 | PCM.DCSUM1 ---
Discharge Summary - Discharge Data Discharge Date: 08/29/16 Discharge Disposition: Home, Self-Care 01 Condition: Good - Patient Instructions Diet: Usual Diet as Tolerated Activity: As Tolerated Driving: Do Not Drive Showering/Bathing: May Shower Notify Provider of: Fever, Increased Pain, Nausea and/or Vomiting - Discharge Plan Home Medications: Home Meds Gabapentin [Neurontin] 100 mg PO ACLUN 08/29/14 [History] Gabapentin [Neurontin] 300 mg PO BID 08/29/14 [History] Referrals: [facility] [Outside] Leon Small MD [Physician] - 10/08/16 10:45 am - General Info Date of Service: 08/29/16 Functional Status: Reports: pain controlled - Review of Systems General: Reports: No Symptoms HEENT: Reports: no symptoms Pulmonary: Reports: no symptoms Cardiovascular: Reports: No Symptoms Gastrointestinal: Reports: No symptoms Genitourinary: Reports: no symptoms Musculoskeletal: Reports: no symptoms Skin: Reports: no symptoms Neurological: Reports: No Symptoms Psychiatric: Reports: no symptoms - Patient Data Vitals - Most Recent: Last Vital Signs Temp 36.9 C 08/29/16 04:18 Pulse 62 08/29/16 04:18 Resp 16 08/29/16 04:18 BP 117/55 L 08/29/16 04:18 Pulse Ox 97 08/29/16 04:18 Weight - Most Recent: 117.027 kg Lab Results - Last 24 hrs: Laboratory Results - last 24 hr 08/29/16 Range/Units 04:45 Hgb 9.3 L (12.0-16.0) g/dL Hct 27.9 L (36.0-46.0) % Med Orders - Current: Current Medications Acetaminophen (Tylenol Extra Strength) 500 mg PO Q4H PRN PRN Reason: Pain Acetaminophen (Tylenol Extra Strength) 1,000 mg PO Q4H PRN PRN Reason: Pain Last Admin: 08/29/16 08:14 Dose: 1,000 mg Benzocaine/Menthol (Dermoplast Pain Relief 20%-0.5% [place]) 78 gm TOP ASDIRECTED PRN PRN Reason: Perineal Comfort Measure Last Admin: 08/28/16 10:26 Dose: 1 can Bisacodyl (Dulcolax) 10 mg RECTAL .ONCE PRN PRN Reason: Constipation Butorphanol Tartrate (Stadol) 1 mg IVPUSH Q1H PRN PRN Reason: Pain Last Admin: 08/28/16 04:04 Dose: 1 mg Carboprost Tromethamine (Hemabate Ds) 250 mcg IM ASDIRECTED PRN PRN Reason: Post Hemorrhage Docusate Sodium (Colace) 100 mg PO BID PRN PRN Reason: Constipation Emollient Ointment (Lansinoh Hpa) 0 gm TOP ASDIRECTED PRN PRN Reason: Sore Nipples Last Admin: 08/28/16 10:27 Dose: 1 tube Lactated Ringer's (Ringers, Lactated) 1,000 mls @ 150 mls/hr IV ASDIRECTED MARIYA Last Admin: 08/28/16 04:29 Dose: 150 mls/hr Ibuprofen (Motrin) 400 mg PO Q4H PRN PRN Reason: Pain Ibuprofen (Motrin) 800 mg PO Q6H PRN PRN Reason: Pain Last Admin: 08/29/16 04:14 Dose: 800 mg Lidocaine HCl (Xylocaine 1%) 50 ml INJECT .ONCE PRN PRN Reason: Laceration repair Last Admin: 08/28/16 03:34 Dose: 50 ml Methylergonovine Maleate (Methergine) 0.2 mg IM ASDIRECTED PRN PRN Reason: Post Hemorrhage Misoprostol (Cytotec) 200 mcg PO .ONCE PRN PRN Reason: Post Hemorrhage Misoprostol (Cytotec) 25 mcg VAG .ONCE [facility] Last Admin: 08/27/16 17:25 Dose: 25 mcg Misoprostol (Cytotec) 25 mcg PO .ONCE [facility] Last Admin: 08/27/16 17:25 Dose: 25 mcg Oxycodone HCl (Oxycodone) 5 mg PO Q2H PRN PRN Reason: Pain Last Admin: 08/29/16 08:13 Dose: 5 mg Sodium Chloride (Saline Flush) 10 ml FLUSH ASDIRECTED PRN PRN Reason: Keep Vein Open Sodium Chloride (Saline Flush) 2.5 ml FLUSH ASDIRECTED PRN PRN Reason: Keep Vein Open Sterile Water (Sterile Water For Irrigation) 1,000 ml IRR ASDIRECTED PRN PRN Reason: delivery Terbutaline Sulfate (Brethine) 0.25 mg SUBCUT ASDIRECTED PRN PRN Reason: Tacysystole Witch Ara (Tucks) 1 pad TOP ASDIRECTED PRN PRN Reason: comfort care Last Admin: 08/28/16 10:27 Dose: 1 tub Discontinued Medications Fentanyl (Sublimaze) Confirm Administered Dose 200 mcg .ROUTE .STK-MED ONE Stop: 08/28/16 03:00 Last Admin: 08/28/16 07:39 Dose: Not Given Oxytocin/Lactated Ringer's (Pitocin In Lr 30 Units/500 Ml) 30 unit in 500 mls @ 2 mls/hr IV TITRATE MARIYA; 2 MUNITS/MIN PRN Reason: Protocol Stop: 08/28/16 16:29 Last Titration: 08/28/16 09:28 Dose: 999 munits/min, 999 mls/hr Ropivacaine (Naropin 0.2%) Confirm Administered Dose 100 mls @ as directed .ROUTE .[place]-MED ONE Stop: 08/28/16 02:59 Last Admin: 08/28/16 07:39 Dose: Not Given Misoprostol (Cytotec) 25 mcg VAG Q4H PRN PRN Reason: Cervical Ripening Stop: 08/28/16 20:28 Last Admin: 08/27/16 21:30 Dose: 25 mcg Misoprostol (Cytotec) 25 mcg PO Q4H PRN PRN Reason: Cervical Ripening Stop: 08/28/16 20:28 Last Admin: 08/27/16 21:30 Dose: 25 mcg Nalbuphine HCl (Nubain) 10 mg IVPUSH Q1H PRN PRN Reason: Pain (severe 7-10) Stop: 08/27/16 18:28 Ropivacaine (Naropin 0.2%) Confirm Administered Dose 20 ml .ROUTE .STK-MED ONE Stop: 08/28/16 02:58 Last Admin: 08/28/16 07:39 Dose: Not Given - Exam General: Reports: alert, oriented HEENT: Reports: Pupils equal, Pupils reactive, EOMI, Mucous membr. moist/pink Neck: Reports: supple Lungs: Reports: Clear to auscultation, Normal respiratory effort Cardiovascular: Reports: Regular Rate, Regular Rhythm Abdomen: Reports: bowel sounds present, soft, no tenderness, no distension (Female) Exam: Normal external exam, Normal speculum exam, Normal bimanual exam Rectal (Female) Exam: Normal Exam, Normal rectal tone Back Exam: Reports: normal inspection, full range of motion Extremities: Reports: no edema, normal pulses Skin: Reports: warm, dry, intact Wound/Incisions: Reports: healing well Neurological: Reports: no new focal deficit Psy/Mental Status: Reports: alert, normal affect, normal mood *Q Meaningful Use (DIS) - VTE *Q VTE Criteria *Q: - Stroke *Q Stroke Criteria *Q: - AMI *Q AMI Criteria *Q:
[2016-08-29 13:41] VITALS: BP 119/61
== END 2016-08-29 13:15 | disposition home or self-care (01) | DRG 775 ==
LOC: MW.OBCHECK 14:04 → MW.OB 14:05 → MW.OBCHECK 16:28 → OBSVTOIN 08-28 09:27 → MW.OB 08-28 13:19
PROVIDERS: ADMIT Obstetrics & Gynecology; ATTEND Obstetrics & Gynecology
PROC: 10E0XZZ Delivery of Products of Conception, External Approach (ICD-10-PCS; principal; 2016-08-28)
PROC: 3E0P7GC Introduction of Other Therapeutic Substance into Female Reproductive, Via Natural or Artificial Opening (ICD-10-PCS; 2016-08-28)
PROC: 10907ZC Drainage of Amniotic Fluid, Therapeutic from Products of Conception, Via Natural or Artificial Opening (ICD-10-PCS; 2016-08-28)
DX: O48.0 Post-term pregnancy (principal); Z3A.41 41 weeks gestation of pregnancy; Z37.0 Single live birth
CPT/HCPCS: 01967; 36415; 59025; 80305; 81003; 85014; 85018; 85027; 86850; 86900; 86901; A9270-GY; J0595; J7120

== ENCOUNTER 2016-09-01 23:24 | Observation (INO) | payer BC, MEDICAID ==
[2016-09-01] MEDS ORDERED: Sodium Chloride 0.9% 2.5 ML Syringe FLUSH PRN (23:36)
[2016-09-01] MEDS ORDERED: Sodium Chloride 0.9% 10 ML Syringe FLUSH PRN (23:36)
[2016-09-01] MEDS ORDERED: Sodium Chloride 0.9% 1,000 ML IV ONE (23:37)
--- NOTE | 2016-09-01 23:42 | EDM.PDOC ---
ED HPI GENERAL MEDICAL PROBLEM - General Chief Complaint: General Stated Complaint: NEW MOM- POSSIBLE INFECTION Time Seen by Provider: 09/01/16 23:34 - History of Present Illness INITIAL COMMENTS - FREE TEXT/NARRATIVE: HISTORY AND PHYSICAL: History of present illness: The patient is a 26-year-old female who delivered her baby on August 28 but the child was very large at over 10 pounds; she states that the baby's head was posterior and she was told that she would have a lot of lower back pain and abdominal pain after the delivery and she also had a lot of back pain and hip pain before the ended. Patient states that they had multiple attempts at getting her epidural and she had some soreness in that area as well after the delivery. She was discharged home and says that on Friday night she had the sweats and chills and when she took her temperature it was 102. She has had the usual amount of dark vaginal bleeding but says that that the bleeding has increased in intensity and she has changed the pad every 3 hours passing brighter blood and clots. The patient was breast-feeding but she has stopped and has no breast complaints of redness or tenderness. She has no sore throat runny nose cough chest pain or upper abdominal pain and says that all of her pain is in the lower pelvic area and her lower back area. She has no flank tenderness. Patient has been using Tylenol and ibuprofen for pain and fevers. Patient was seen at an outside ER, [facility] in [place], where they did CBC CMP vaginal cultures blood cultures and send the urine for testing and give the patient IV fluids IV Unasyn and pain medication. Because they have no ability to do imaging she was transferred here after they discussed the case with our OB M.D. Dr. Small. He was the physician who delivered this patient. Review of systems: As per history of present illness and below otherwise all systems reviewed and negative. Past medical history: As per history of present illness and as reviewed below otherwise noncontributory. Surgical history: As per history of present illness and as reviewed below otherwise noncontributory. Social history: No reported history of drug or alcohol abuse. Family history: As per history of present illness and as reviewed below otherwise noncontributory. Physical exam: General: Well-developed well-nourished female who is mildly overweight and moves in the ED but seems uncomfortable with certain movements. She's currently afebrile. HEENT: Atraumatic, normocephalic, pupils reactive, negative for conjunctival pallor or scleral icterus, mucous membranes moist, throat clear, neck supple, nontender, trachea midline. Lungs: Clear to auscultation, breath sounds equal bilaterally, chest nontender. No work or breathing or sensory muscle use Heart: S1S2, regular, negative for clicks, rubs, or JVD. Abdomen: Soft, nondistended, mild tenderness in the lower abdominal area on deep palpation without any rebound or guarding and no tympany. She is not distended and her bowel sounds are slightly hypoactive. Negative for masses or hepatosplenomegaly. Negative for costovertebral tenderness. Uterus is at the level of the umbilicus and is tender but not boggy Pelvis: Stable nontender. Genitourinary: Deferred. Patient had a pelvic exam at the outside ER which revealed a tender boggy uterus and blood in the vault. She did not feel that the os was open. Rectal: Deferred. Extremities: Atraumatic, negative for cords or calf pain. Neurovascular unremarkable. Neuro: Awake, alert, oriented. Cranial nerves II through XII unremarkable. Cerebellum unremarkable. Motor and sensory unremarkable throughout. Exam nonfocal. Back: There are no midline step-offs or defects the thoracic or lumbar spine and the prior epidural puncture sites are seen but there is no erythema or soft tissue swelling appreciated. Diagnostics: CBC CMP UA blood and urine cultures were performed at the outside institution along with vaginal cultures--- I currently have results with a CBC and CMP but do not have the UA. I will repeat the UA and urine culture here as well as the lactic acid and a pelvic ultrasound. Therapeutics: IV fluids, patient received pain meds and Unasyn prior to coming to the ER I deferred a pelvic exam as Dr. Small would be coming in to evaluate the patient as well. During the pelvic ultrasound the projection technician told me that the patient was passing a lot of clots and bleeding and the patient confirms this. Currently she has moderately soaked a pad here but wall sitting in bed she is not copiously bleeding. I discussed with the patient and at bedside the lab tests that we have gotten as well as the ultrasound report and I will discuss them with Dr. Small and plan for admission. 0215: Case was discussed with Dr. Small; he requests observation admission and a dose of Cleocin to be given. Impression: Endometritis/retained products of conception Definitive disposition and diagnosis as appropriate pending reevaluation and review of above. Lower Abdomen Pain Score (Numeric/FACES): 6 Lower Back Pain Score (Numeric/FACES): 6 - Related Data Allergies Allergy/AdvReac Type Severity Reaction Status Date / Time No Known Allergies Allergy Verified 09/02/16 00:13 Home Meds: Home Meds Docosahexanoic Acid [ Dha] 200 mg PO DAILY 09/02/16 [History] Ergocalciferol (Vitamin D2) [Vitamin D] 400 unit PO DAILY 09/02/16 [History] Eden-3 Fatty Acids [Fish Oil] 300 mg PO DAILY 09/02/16 [History] oxyCODONE 5 mg PO DAILY PRN 09/02/16 [History] Past Medical History - Past Health History Medical/Surgical History: Denies Medical/Surgical History (Patient denies taking any medication or any medical problems) Gastrointestinal History: Reports: Irritable bowel syndrome [employer] History: Reports: , Spontaneous , Therapeutic Musculoskeletal History: Reports: Fibromyalgia, Other (see below) Other Musculoskeletal History: carpal tunnel syndrome Psychiatric History: Reports: Depression Endocrine/Metabolic History: Reports: None (Denies any personal or family hx of bleeding or clotting problems), Obesity/BMI 30+ - Infectious Disease History Infectious Disease History: Reports: Herpes - Past Surgical History HEENT Surgical History: Reports: Tonsillectomy Female Surgical History: Reports: Cystectomy Endocrine Surgical History: Reports: None Musculoskeletal Surgical History: Reports: None Social & Family History - Family History OBGYN: Reports: Musculoskeletal: Reports: Fibromyalgia Other Musculoskeletal Family History: Rheumatoid arthritis Endocrine/Metabolic: Reports: Other (see below) Other Endocrine/Metabolic Family History: diabtes, unsure of what type - Tobacco Use Smoking Status *Q: Never Smoker - Alcohol Use Days Per Week of Alcohol Use: 0 - Recreational Drug Use Recreational Drug Use: Yes Drug Use in Last 12 Months: Yes Recreational Drug Type: Reports: Marijuana/Hashish Recreational Drug Use Frequency: Monthly ED ROS GENERAL - Review of Systems Review Of Systems: ROS reveals no pertinent complaints other than HPI. ED EXAM, GENERAL - Physical Exam Exam: See Below (See dictation) Course - Vital Signs Last Recorded V/S: Last Vital Signs Temp 36.8 C 09/02/16 01:49 Pulse 80 09/02/16 01:49 Resp 18 09/02/16 01:49 BP 118/62 09/02/16 01:49 Pulse Ox 97 09/02/16 01:49 - Orders/Labs/Meds Orders: Active Orders 24 hr Category Date Time Status Patient Status [ADT] Stat ADT 09/02/16 02:18 Ordered Pelvis Non OB Comp [US] Stat Exams 09/01/16 23:37 Taken CRP [C-REACTIVE PROTEIN] [CHEM] Stat Lab 09/02/16 02:00 Received SEDIMENTATION RATE AUTO [HEME] Stat Lab 09/02/16 02:00 Received Clindamycin Phosphate in D5W [Cleocin in D5W] 900 mg Med 09/02/16 02:18 Ordered Premix Bag 1 bag IV ONETIME HYDROmorphone [Dilaudid] Med 09/02/16 02:19 Once 1 mg IVPUSH ONETIME ONE Sodium Chloride 0.9% [Saline Flush] Med 09/01/16 23:36 Active 10 ml FLUSH ASDIRECTED PRN Sodium Chloride 0.9% [Saline Flush] Med 09/01/16 23:36 Active 2.5 ml FLUSH ASDIRECTED PRN Saline Lock Insert [OM.PC] Stat Oth 09/01/16 23:36 Ordered Medication Orders Clindamycin Phosphate 900 mg/ (Premix) 50 mls @ 100 mls/hr IV ONETIME ONE Stop: 09/02/16 02:47 Sodium Chloride (Saline Flush) 10 ml FLUSH ASDIRECTED PRN PRN Reason: Keep Vein Open Sodium Chloride (Saline Flush) 2.5 ml FLUSH ASDIRECTED PRN PRN Reason: Keep Vein Open Labs: Laboratory Tests 09/01/16 09/01/16 Range/Units 00:30 23:48 Lactate 1.2 (0.20-2.00) mmol/L Urine Color YELLOW Urine Appearance CLEAR Urine pH 7.5 (5.0-8.0) Ur Specific Lee 1.010 (1.001-1.035) Urine Protein NEGATIVE (NEGATIVE) mg/dL Urine Glucose (UA) NEGATIVE (NEGATIVE) mg/dL Urine Ketones NEGATIVE (NEGATIVE) mg/dL Urine Occult Blood LARGE H (NEGATIVE) Urine Nitrite NEGATIVE (NEGATIVE) Urine Bilirubin NEGATIVE (NEGATIVE) Urine Urobilinogen 0.2 (<2.0) EU/dL Ur Leukocyte Esterase NEGATIVE (NEGATIVE) Urine RBC 5-18 (0-2/HPF) Urine WBC 0-1 (0-5/HPF) Ur Epithelial Cells OCCASIONAL (NONE-FEW) Urine Bacteria FEW (NEGATIVE) Meds: Medications Generic Name Dose Route Start Last Admin Trade Name Enmanuel PRN Reason Stop Dose Admin Clindamycin Phosphate 900 mg/ 50 mls @ 100 mls/hr 09/02/16 02:18 Premix IV 09/02/16 02:47 ONETIME ONE Sodium Chloride 10 ml 09/01/16 23:36 Saline Flush FLUSH ASDIRECTED PRN Keep Vein Open Sodium Chloride 2.5 ml 09/01/16 23:36 Saline Flush FLUSH ASDIRECTED PRN Keep Vein Open Discontinued Medications Generic Name Dose Route Start Last Admin Trade Name Enmanuel PRN Reason Stop Dose Admin Sodium Chloride 1,000 mls @ 999 mls/hr 09/01/16 23:37 09/02/16 00:20 Normal Saline IV 09/02/16 00:37 999 mls/hr STAT ONE Administration Departure - Departure Time of Disposition: 02:21 Disposition: Refer to Observation Condition: fair Clinical Impression: Endometritis, Retained products of conception Forms: ED Department Discharge - My Orders Last 24 Hours: My Active Orders 09/01/16 23:36 Sodium Chloride 0.9% [Saline Flush] 10 ml FLUSH ASDIRECTED PRN Sodium Chloride 0.9% [Saline Flush] 2.5 ml FLUSH ASDIRECTED PRN Saline Lock Insert [OM.PC] Stat 09/01/16 23:37 Pelvis Non OB Comp [US] Stat 09/02/16 02:00 CRP [C-REACTIVE PROTEIN] [CHEM] Stat SEDIMENTATION RATE AUTO [HEME] Stat 09/02/16 02:18 Patient Status [ADT] Stat Clindamycin Phosphate in D5W [Cleocin in D5W] 900 mg Premix Bag 1 bag IV ONETIME 09/02/16 02:19 HYDROmorphone [Dilaudid] 1 mg IVPUSH ONETIME ONE - Assessment/Plan Last 24 Hours: My Active Orders 09/01/16 23:36 Sodium Chloride 0.9% [Saline Flush] 10 ml FLUSH ASDIRECTED PRN Sodium Chloride 0.9% [Saline Flush] 2.5 ml FLUSH ASDIRECTED PRN Saline Lock Insert [OM.PC] Stat 09/01/16 23:37 Pelvis Non OB Comp [US] Stat 09/02/16 02:00 CRP [C-REACTIVE PROTEIN] [CHEM] Stat SEDIMENTATION RATE AUTO [HEME] Stat 09/02/16 02:18 Patient Status [ADT] Stat Clindamycin Phosphate in D5W [Cleocin in D5W] 900 mg Premix Bag 1 bag IV ONETIME 09/02/16 02:19 HYDROmorphone [Dilaudid] 1 mg IVPUSH ONETIME ONE
[2016-09-02] MEDS ORDERED: Clindamycin Phosphate in D5W 900 MG in Premix Bag 1 BAG IV ONE ×2 (02:18)
[2016-09-02] MEDS ORDERED: HYDROmorphone 2 MG/ML Syringe IVPUSH ONE (02:19)
[2016-09-02] MEDS ORDERED: cefTRIAXone 1 GM in Premix Bag 1 BAG IV ONE (09:03)
[2016-09-02] MEDS: Acetaminophen/oxyCODONE 325-10 MG Tab PO PRN ×3 (09:36→20:49)
[2016-09-02] MEDS: Clindamycin Phosphate in D5W 600 MG in Premix Bag 50 BAG IV SCH ×4 (10:25→18:18)
--- NOTE | 2016-09-02 11:38 | PCM.HP ---
H&P History of Present Illness - General Date of Service: 09/02/16 Admit Problem/Dx: Admission Diagnosis/Problem Admission Diagnosis/Problem Endometritis Source of Information: Patient History Limitations: Reports: No limitations - History of Present Illness Symptom Onset Date: 08/31/16 Duration of Symptoms: Reports: Day(s):, Getting worse Location: Reports: abdomen Quality: Reports: Pressure, Stabbing Severity: moderate Improves with: Reports: None Worsens with: Reports: None Associated Symptoms: Reports: no other symptoms Lower Abdomen Pain Score (Numeric/FACES): 8 Lower Back Pain Score (Numeric/FACES): 7 - Related Data Allergies/Adverse Reactions: Allergies Allergy/AdvReac Type Severity Reaction Status Date / Time No Known Allergies Allergy Verified 09/02/16 00:13 Home Medications: Home Meds Docosahexanoic Acid [ Dha] 200 mg PO DAILY 09/02/16 [History] Ergocalciferol (Vitamin D2) [Vitamin D] 400 unit PO DAILY 09/02/16 [History] [place]-3 Fatty Acids [Fish Oil] 300 mg PO DAILY 09/02/16 [History] oxyCODONE 5 mg PO DAILY PRN 09/02/16 [History] Past Medical History - Past Health History Medical/Surgical History: Denies Medical/Surgical History (Patient denies taking any medication or any medical problems) Respiratory History: Reports: Asthma Gastrointestinal History: Reports: Irritable bowel syndrome [place] History: Reports: , Spontaneous , Therapeutic Other OB/BYN History: Normal deliveries x 3 Musculoskeletal History: Reports: Fibromyalgia, Other (see below) Other Musculoskeletal History: carpal tunnel syndrome bilateral Psychiatric History: Reports: Anxiety Endocrine/Metabolic History: Reports: None, Obesity/BMI 30+ - Infectious Disease History Infectious Disease History: Reports: Chicken pox, Herpes - Past Surgical History HEENT Surgical History: Reports: Tonsillectomy Female Surgical History: Reports: Other (see below) Other Female Surgeries/Procedures: laparoscopy for ruptured ovarian cyst Endocrine Surgical History: Reports: None Musculoskeletal Surgical History: Reports: None Social & Family History - Family History Family Medical History: Noncontributory OBGYN: Reports: Musculoskeletal: Reports: Fibromyalgia, RA Other Musculoskeletal Family History: Rheumatoid arthritis Neurological: Reports: Alzheimers disease, CVA Psychiatric: Reports: Anxiety, Depression Endocrine/Metabolic: Reports: Other (see below) Other Endocrine/Metabolic Family History: diabtes, unsure of what type Oncologic: Reports: Ovarian, Skin - Tobacco Use Smoking Status *Q: Former Smoker Used Tobacco, but Quit: Yes Month Tobacco Last Used: NOT STATED Second Hand Smoke Exposure: No - Caffeine Use Caffeine Use: Reports: None - Alcohol Use Days Per Week of Alcohol Use: 0 - Recreational Drug Use Recreational Drug Use: Yes Drug Use in Last 12 Months: No Recreational Drug Type: Reports: Marijuana/Hashish Other Recreational Drug Type: pt states she only takes marijuana 1-2 times/year Recreational Drug Use Frequency: Monthly Recreational Drug Last Use: 1 month ago H&P Review of Systems - Review of Systems: Review Of Systems: See Below General: Reports: no symptoms HEENT: Reports: no symptoms Pulmonary: Reports: No Symptoms Cardiovascular: Reports: no symptoms Gastrointestinal: Reports: No symptoms Genitourinary: Reports: no symptoms Musculoskeletal: Reports: no symptoms Skin: Reports: no symptoms Psychiatric: Reports: no symptoms Neurological: Reports: No Symptoms Hematologic/Lymphatic: Reports: no symptoms Immunologic: Reports: no symptoms Exam - Exam Exam: See Below - Vital Signs Vital Signs: Last Vital Signs Temp 36.6 C 09/02/16 07:56 Pulse 78 09/02/16 07:56 Resp 20 09/02/16 07:56 BP 123/60 09/02/16 07:56 Pulse Ox 98 09/02/16 07:56 Weight: 108 kg - Exam General: alert, oriented, 4 HEENT: PERRLA, Hearing intact, Mucosa moist & pink, Nares patent, Normal nasal septum, Posterior pharynx clear, Conjunctiva clear, EOMI, EACs clear, TMs clear Neck: supple, trachea midline, 2 Lungs: Clear to auscultation, Normal respiratory effort Cardiovascular: regular rate, regular rhythm Abdomen: normal bowel sounds, soft (Female) Exam: Normal external exam, Normal speculum exam, Normal bimanual exam, Cervical discharge, Cervix motion tenderness, Enlarged uterus, Vaginal bleeding Rectal (Female) Exam: Normal Exam, Normal rectal tone Back Exam: normal inspection, full range of motion, NT Extremities: 3, normal inspection, 10 Skin: warm, dry, intact Neurological: cranial nerves intact, reflexes equal bilateral Neuro Extensive - Mental Status: alert, oriented x3, normal mood/affect, normal cognition Neuro Extensive - Motor, Sensory, Reflexes: CN II-XII intact, normal gait, normal reflexes Psychiatric: alert, normal affect, normal mood - Patient Data Lab Results last 24 hrs: Laboratory Results - last 24 hr 09/02/16 Range/Units 09:14 WBC 14.54 H (4.0-11.0) K/uL RBC 3.29 L (4.30-5.90) M/uL Hgb 10.1 L (12.0-16.0) g/dL Hct 30.4 L (36.0-46.0) % MCV 92.4 (80.0-98.0) fL MCH 30.7 (27.0-32.0) pg MCHC 33.2 (31.0-37.0) g/dL RDW Std Deviation 50.3 (28.0-62.0) fl RDW Coeff of Laxmi 15 (11.0-15.0) % Plt Count 312 (150-400) K/uL MPV 10.50 (7.40-12.00) fL Neut % (Auto) 79.2 (48.0-80.0) % Lymph % (Auto) 13.2 L (16.0-40.0) % [place] % (Auto) 5.0 (0.0-15.0) % Eos % (Auto) 2.4 (0.0-7.0) % Baso % (Auto) 0.2 (0.0-1.5) % Neut # (Auto) 11.5 H (1.4-5.7) K/uL Lymph # (Auto) 1.9 (0.6-2.4) K/uL [place] # (Auto) 0.7 (0.0-0.8) K/uL Eos # (Auto) 0.4 (0.0-0.7) K/uL Baso # (Auto) 0.0 (0.0-0.1) K/uL Nucleated RBC % 0.0 /100WBC Nucleated RBCs # 0 K/uL Result Diagrams: 09/02/16 09:14 *Q Meaningful Use (ADM) - VTE *Q VTE Criteria *Q: - Stroke *Q Stroke Criteria *Q: - AMI *Q AMI Criteria *Q: Problem List Initiated/Reviewed/Updated: Yes Orders Last 24hrs: Active Orders 24 hr Category Date Time Status Vital Signs [RC] Q8HR Care 09/02/16 08:58 Active Regular Diet [DIET] Diet 09/02/16 Breakfast Active CBC WITH AUTO DIFF [HEME] Routine Lab 09/03/16 05:11 Ordered Acetaminophen/oxyCODONE [Percocet 325-10 MG] Med 09/02/16 09:00 Active 1 tab PO Q4H PRN Bisacodyl [Dulcolax] Med 09/02/16 11:32 Once 10 mg RECTAL ONETIME ONE Clindamycin Phosphate in D5W [Cleocin in D5W] 600 mg Med 09/02/16 09:15 Active Premix Bag 50 bag IV Q8H Ibuprofen [Motrin] Med 09/02/16 11:31 Active 800 mg PO Q6H PRN Medication Orders Bisacodyl (Dulcolax) 10 mg RECTAL ONETIME ONE Stop: 09/02/16 11:33 Clindamycin Phosphate 600 mg/ (Premix) 50 mls @ 100 mls/hr IV Q8H MARIYA Last Admin: 09/02/16 10:25 Dose: 100 mls/hr Ibuprofen (Motrin) 800 mg PO Q6H PRN PRN Reason: Pain (moderate 4-6) Oxycodone/Acetaminophen (Percocet 325-10 Mg) 1 tab PO Q4H PRN PRN Reason: Pain (moderate 4-6) Last Admin: 09/02/16 09:36 Dose: 1 tab Sodium Chloride (Saline Flush) 10 ml FLUSH ASDIRECTED PRN PRN Reason: Keep Vein Open Sodium Chloride (Saline Flush) 2.5 ml FLUSH ASDIRECTED PRN PRN Reason: Keep Vein Open Assessment/Plan Comment:: Status post normal spontaneous vaginal delivery 5 days ago the patient start having pelvic pain and pelvic pressure and irregular vaginal bleeding with fever the patient evaluated in the emergency room she have an elevated white count she have cervical motion tenderness back pain and tenderness on manipulation of the uterus there is minimum vaginal bleeding. Abdominal ultrasound is shows the uterus is empty there is no product of conception however the endometrial lining is prominent and it is consistent with a probable post delivery endometritis. And my assessment the most likely the patient does have post delivery endometritis weight and that made her to the hospital established her on IV broad-spectrum antibiotic.
[2016-09-02] MEDS ORDERED: Bisacodyl 10 MG Supp RECTAL ONE (12:00)
[2016-09-02] MEDS: Ibuprofen 800 MG Tab PO PRN ×2 (12:03→18:17)
--- NOTE | 2016-09-02 12:28 | US ---
EXAM DATE: 09/02/16 PATIENT'S AGE: 26 Patient: ETIENNE PABON Facility: [place], [place] Site . Site : [id number] Study: US Pelvis [id number] 1:42:38 AM Ordering Physician: Doctor Obando Final Report: INDICATION: vaginal bleeding TECHNIQUE: Ultrasound pelvis transabdominal and transvaginal for better assessment or to better visualize the endometrium. Real-time sonographic images with spectral and color Doppler imaging of the ovaries were obtained. COMPARISON: None FINDINGS: Uterus: 16.7 x 13.2 x 9.8 cm. Normal echotexture of the myometrium noted. No masses are seen. Endometrium: 28 mm in thickness and heterogeneous in appearance. There may be internal blood flow seen within the endometrial complex on image 20. Complex nabothian cyst is seen in the cervix. A small amount of fluid is seen in the endocervical canal. Right ovary: 4 x 2.3 x 3.2 cm. No ovarian or adnexal masses noted. Normal arterial blood flow seen in the ovary. Left ovary: 4.2 x 2.6 x 3.5 cm. No ovarian or adnexal masses noted. Normal arterial blood flow seen in the ovary. Cul-de-sac: No significant ascites noted. IMPRESSION: 1. The endometrial complex is thickened and echogenic in appearance which may be due to the presence of blood products by retained products of conception cannot be excluded. Dictated by Phillip Davis MD @ 09/02/2016 1:48:58 AM Dictated by: Phillip Davis MD @ 09/02/2016 01:49:04 (Electronic Signature) Report Signed by Proxy and Original Signed Document filed in the Medical Record. [email or web address]
[2016-09-03] MEDS: Clindamycin Phosphate in D5W 600 MG in Premix Bag 50 BAG IV SCH ×2 (02:08)
[2016-09-03] MEDS: Acetaminophen/oxyCODONE 325-10 MG Tab PO PRN ×2 (02:45→08:40)
[2016-09-03] MEDS: Ibuprofen 800 MG Tab PO PRN (06:29)
[2016-09-03 08:19] VITALS: BP 137/77
--- NOTE | 2016-09-03 08:28 | PCM.PN ---
- General Info Date of Service: 09/03/16 Functional Status: Reports: pain controlled - Review of Systems General: Reports: No Symptoms HEENT: Reports: no symptoms Pulmonary: Reports: no symptoms Cardiovascular: Reports: No Symptoms Gastrointestinal: Reports: No symptoms Genitourinary: Reports: no symptoms Musculoskeletal: Reports: no symptoms Skin: Reports: no symptoms Neurological: Reports: No Symptoms Psychiatric: Reports: no symptoms - Patient Data Vitals - most recent: Last Vital Signs Temp 36.9 C 09/03/16 08:00 Pulse 70 09/03/16 08:00 Resp 18 09/03/16 08:00 BP 137/77 09/03/16 08:00 Pulse Ox 98 09/03/16 03:11 Weight - most recent: 108 kg Lab Results last 24 hrs: Laboratory Results - last 24 hr 09/02/16 09/03/16 Range/Units 09:14 04:30 WBC 14.54 H 12.83 H (4.0-11.0) K/uL RBC 3.29 L 3.09 L (4.30-5.90) M/uL Hgb 10.1 L 9.4 L (12.0-16.0) g/dL Hct 30.4 L 28.3 L (36.0-46.0) % MCV 92.4 91.6 (80.0-98.0) fL MCH 30.7 30.4 (27.0-32.0) pg MCHC 33.2 33.2 (31.0-37.0) g/dL RDW Std Deviation 50.3 49.3 (28.0-62.0) fl RDW Coeff of Laxmi 15 15 (11.0-15.0) % Plt Count 312 321 (150-400) K/uL MPV 10.50 10.50 (7.40-12.00) fL Neut % (Auto) 79.2 (48.0-80.0) % Lymph % (Auto) 13.2 L (16.0-40.0) % [place] % (Auto) 5.0 (0.0-15.0) % Eos % (Auto) 2.4 (0.0-7.0) % Baso % (Auto) 0.2 (0.0-1.5) % Neut # (Auto) 11.5 H (1.4-5.7) K/uL Lymph # (Auto) 1.9 (0.6-2.4) K/uL [place] # (Auto) 0.7 (0.0-0.8) K/uL Eos # (Auto) 0.4 (0.0-0.7) K/uL Baso # (Auto) 0.0 (0.0-0.1) K/uL Add Manual Diff YES Neutrophils % (Manual) 69 (48.0-80.0) % Band Neutrophils % 1 % Lymphocytes % (Manual) 23 (16.0-40.0) % Monocytes % (Manual) 4 (0.0-15.0) % Eosinophils % (Manual) 1 (0.0-7.0) % Metamyelocytes % 2 % Nucleated RBC % 0.0 0.0 /100WBC Absolute Seg Neuts 8.9 Band Neutrophils # 0.1 Lymphocytes # (Manual) 3.0 Monocytes # (Manual) 0.5 Eosinophils # (Manual) 0.1 Absolute Metamyelocyte 0.3 Nucleated RBCs # 0 0 K/uL Med Orders - Current: Current Medications Clindamycin Phosphate 600 mg/ (Premix) 50 mls @ 100 mls/hr IV Q8H MARIYA Last Admin: 09/03/16 02:08 Dose: 100 mls/hr Ibuprofen (Motrin) 800 mg PO Q6H PRN PRN Reason: Pain (moderate 4-6) Last Admin: 09/03/16 06:29 Dose: 800 mg Oxycodone/Acetaminophen (Percocet 325-10 Mg) 1 tab PO Q4H PRN PRN Reason: Pain (moderate 4-6) Last Admin: 09/03/16 02:45 Dose: 1 tab Sodium Chloride (Saline Flush) 10 ml FLUSH ASDIRECTED PRN PRN Reason: Keep Vein Open Sodium Chloride (Saline Flush) 2.5 ml FLUSH ASDIRECTED PRN PRN Reason: Keep Vein Open Discontinued Medications Bisacodyl (Dulcolax) 10 mg RECTAL ONETIME ONE Stop: 09/02/16 12:01 Last Admin: 09/03/16 07:52 Dose: Not Given Hydromorphone HCl (Dilaudid) 1 mg IVPUSH ONETIME ONE Stop: 09/02/16 02:20 Last Admin: 09/02/16 02:34 Dose: 1 mg Sodium Chloride (Normal Saline) 1,000 mls @ 999 mls/hr IV STAT ONE Stop: 09/02/16 00:37 Last Admin: 09/02/16 00:20 Dose: 999 mls/hr Clindamycin Phosphate 900 mg/ (Premix) 50 mls @ 100 mls/hr IV ONETIME ONE Stop: 09/02/16 02:47 Last Admin: 09/02/16 02:36 Dose: 100 mls/hr Ceftriaxone Sodium/Dextrose 1 (gm/ Premix) 50 mls @ 100 mls/hr IV ONETIME ONE Stop: 09/02/16 09:32 Last Admin: 09/02/16 09:42 Dose: 100 mls/hr - Exam General: alert, oriented HEENT: Pupils equal, Pupils reactive, EOMI, Mucous membr. moist/pink Neck: supple Lungs: Clear to auscultation, Normal respiratory effort Cardiovascular: Regular Rate, Regular Rhythm Abdomen: bowel sounds present, soft, no tenderness, no distension (Female) Exam: Normal external exam, Normal speculum exam, Normal bimanual exam Back Exam: normal inspection, full range of motion Extremities: no edema Skin: warm, dry, intact Wound/Incisions: healing well Neurological: no new focal deficit Psy/Mental Status: alert, normal affect, normal mood - Problem List Review Problem List Initiated/Reviewed/Updated: Yes - My Orders Last 24 Hours: My Active Orders 09/02/16 08:58 Vital Signs [RC] Q8HR 09/02/16 09:00 Acetaminophen/oxyCODONE [Percocet 325-10 MG] 1 tab PO Q4H PRN 09/02/16 09:15 Clindamycin Phosphate in D5W [Cleocin in D5W] 600 mg Premix Bag 50 bag IV Q8H 09/02/16 11:31 Ibuprofen [Motrin] 800 mg PO Q6H PRN 09/02/16 11:32 Enema [RC] ASDIRECTED - Assessment Assessment:: Doing well afebrile for the last 48 hour her white count trending down patient wanted to go home - Plan Plan:: Status post normal spontaneous vaginal delivery 5 days ago the patient start having pelvic pain and pelvic pressure and irregular vaginal bleeding with fever the patient evaluated in the emergency room she have an elevated white count she have cervical motion tenderness back pain and tenderness on manipulation of the uterus there is minimum vaginal bleeding. Abdominal ultrasound is shows the uterus is empty there is no product of conception however the endometrial lining is prominent and it is consistent with a probable post delivery endometritis. And my assessment the most likely the patient does have post delivery endometritis weight and that made her to the hospital established her on IV broad-spectrum antibiotic. 09/03/17 Sent home today on antibiotic Keflex 500 mg by mouth every 6 hours the patient already have followup in
--- NOTE | 2016-09-03 08:29 | PCM.DCSUM1 ---
Discharge Summary - Discharge Data Discharge Date: 09/03/16 Discharge Disposition: Home, Self-Care 01 Condition: Fair - Patient Instructions Diet: Usual Diet as Tolerated Notify Provider of: Fever, Increased Pain, Nausea and/or Vomiting - Discharge Plan Home Medications: Home Meds Docosahexanoic Acid [ Dha] 200 mg PO DAILY 09/02/16 [History] Ergocalciferol (Vitamin D2) [Vitamin D] 400 unit PO DAILY 09/02/16 [History] [place]-3 Fatty Acids [Fish Oil] 300 mg PO DAILY 09/02/16 [History] oxyCODONE 5 mg PO DAILY PRN 09/02/16 [History] Forms: ED Department Discharge Referrals: PCP,None [Primary Care Provider] - - General Info Date of Service: 09/03/16 Functional Status: Reports: pain controlled - Review of Systems General: Reports: No Symptoms HEENT: Reports: no symptoms Pulmonary: Reports: no symptoms Cardiovascular: Reports: No Symptoms Gastrointestinal: Reports: No symptoms Genitourinary: Reports: no symptoms Musculoskeletal: Reports: no symptoms Skin: Reports: no symptoms Neurological: Reports: No Symptoms Psychiatric: Reports: no symptoms - Patient Data Vitals - Most Recent: Last Vital Signs Temp 36.9 C 09/03/16 08:00 Pulse 70 09/03/16 08:00 Resp 18 09/03/16 08:00 BP 137/77 09/03/16 08:00 Pulse Ox 98 09/03/16 03:11 Weight - Most Recent: 108 kg Lab Results - Last 24 hrs: Laboratory Results - last 24 hr 09/02/16 09/03/16 Range/Units 09:14 04:30 WBC 14.54 H 12.83 H (4.0-11.0) K/uL RBC 3.29 L 3.09 L (4.30-5.90) M/uL Hgb 10.1 L 9.4 L (12.0-16.0) g/dL Hct 30.4 L 28.3 L (36.0-46.0) % MCV 92.4 91.6 (80.0-98.0) fL MCH 30.7 30.4 (27.0-32.0) pg MCHC 33.2 33.2 (31.0-37.0) g/dL RDW Std Deviation 50.3 49.3 (28.0-62.0) fl RDW Coeff of Laxmi 15 15 (11.0-15.0) % Plt Count 312 321 (150-400) K/uL MPV 10.50 10.50 (7.40-12.00) fL Neut % (Auto) 79.2 (48.0-80.0) % Lymph % (Auto) 13.2 L (16.0-40.0) % [place] % (Auto) 5.0 (0.0-15.0) % Eos % (Auto) 2.4 (0.0-7.0) % Baso % (Auto) 0.2 (0.0-1.5) % Neut # (Auto) 11.5 H (1.4-5.7) K/uL Lymph # (Auto) 1.9 (0.6-2.4) K/uL [place] # (Auto) 0.7 (0.0-0.8) K/uL Eos # (Auto) 0.4 (0.0-0.7) K/uL Baso # (Auto) 0.0 (0.0-0.1) K/uL Add Manual Diff YES Neutrophils % (Manual) 69 (48.0-80.0) % Band Neutrophils % 1 % Lymphocytes % (Manual) 23 (16.0-40.0) % Monocytes % (Manual) 4 (0.0-15.0) % Eosinophils % (Manual) 1 (0.0-7.0) % Metamyelocytes % 2 % Nucleated RBC % 0.0 0.0 /100WBC Absolute Seg Neuts 8.9 Band Neutrophils # 0.1 Lymphocytes # (Manual) 3.0 Monocytes # (Manual) 0.5 Eosinophils # (Manual) 0.1 Absolute Metamyelocyte 0.3 Nucleated RBCs # 0 0 K/uL Med Orders - Current: Current Medications Clindamycin Phosphate 600 mg/ (Premix) 50 mls @ 100 mls/hr IV Q8H [facility] Last Admin: 09/03/16 02:08 Dose: 100 mls/hr Ibuprofen (Motrin) 800 mg PO Q6H PRN PRN Reason: Pain (moderate 4-6) Last Admin: 09/03/16 06:29 Dose: 800 mg Oxycodone/Acetaminophen (Percocet 325-10 Mg) 1 tab PO Q4H PRN PRN Reason: Pain (moderate 4-6) Last Admin: 09/03/16 02:45 Dose: 1 tab Sodium Chloride (Saline Flush) 10 ml FLUSH ASDIRECTED PRN PRN Reason: Keep Vein Open Sodium Chloride (Saline Flush) 2.5 ml FLUSH ASDIRECTED PRN PRN Reason: Keep Vein Open Discontinued Medications Bisacodyl (Dulcolax) 10 mg RECTAL ONETIME ONE Stop: 09/02/16 12:01 Last Admin: 09/03/16 07:52 Dose: Not Given Hydromorphone HCl (Dilaudid) 1 mg IVPUSH ONETIME ONE Stop: 09/02/16 02:20 Last Admin: 09/02/16 02:34 Dose: 1 mg Sodium Chloride (Normal Saline) 1,000 mls @ 999 mls/hr IV STAT ONE Stop: 09/02/16 00:37 Last Admin: 09/02/16 00:20 Dose: 999 mls/hr Clindamycin Phosphate 900 mg/ (Premix) 50 mls @ 100 mls/hr IV ONETIME ONE Stop: 09/02/16 02:47 Last Admin: 09/02/16 02:36 Dose: 100 mls/hr Ceftriaxone Sodium/Dextrose 1 (gm/ Premix) 50 mls @ 100 mls/hr IV ONETIME ONE Stop: 09/02/16 09:32 Last Admin: 09/02/16 09:42 Dose: 100 mls/hr - Exam General: Reports: alert, oriented HEENT: Reports: Pupils equal, Pupils reactive, EOMI, Mucous membr. moist/pink Neck: Reports: supple Lungs: Reports: Clear to auscultation, Normal respiratory effort Cardiovascular: Reports: Regular Rate, Regular Rhythm Abdomen: Reports: bowel sounds present, soft, no tenderness, no distension (Female) Exam: Normal external exam, Normal speculum exam, Normal bimanual exam Rectal (Female) Exam: Normal Exam, Normal rectal tone Back Exam: Reports: normal inspection, full range of motion Extremities: Reports: no edema, normal pulses Skin: Reports: warm, dry, intact Wound/Incisions: Reports: healing well Neurological: Reports: no new focal deficit Psy/Mental Status: Reports: alert, normal affect, normal mood *Q Meaningful Use (DIS) - VTE *Q VTE Criteria *Q: - Stroke *Q Stroke Criteria *Q: - AMI *Q AMI Criteria *Q:
== END 2016-09-03 10:02 | disposition home or self-care (01) ==
LOC: MW.ED 23:24 → MW.OB 09-02 02:18
PROVIDERS: ADMIT Obstetrics & Gynecology; ATTEND Obstetrics & Gynecology
DX: N71.9 Inflammatory disease of uterus, unspecified (principal); J45.909 Unspecified asthma, uncomplicated; K58.9 Irritable bowel syndrome, unspecified; M79.7 Fibromyalgia; G56.03 Carpal tunnel syndrome, bilateral upper limbs; E66.9 Obesity, unspecified; Z87.891 Personal history of nicotine dependence; Z90.89 Acquired absence of other organs; Z98.890 Other specified postprocedural states; Z79.899 Other long term (current) drug therapy
CPT/HCPCS: 36415; 76856; 81001; 83605; 85025; 85652; 86140; 87086; 96365; 96367; 96375; 99285; A9270; G0378; J0696; J1170; J7040